=== PATIENT | male | born 1950 | race Caucasian/White ===

== ENCOUNTER → 2016-04-23 | Outpatient (CLI) | payer MEDICARE, OTHER ==
--- NOTE | 2016-04-23 12:16 | KCIC ---
MR LUMBAR SPINE HISTORY:Reason For StudyReason: LOW BACK PAIN LATERALLY / Spl. Instructions: / History: LBP w/sciatica, right. Over 10yrs. Spondylosis. COMPARISON: None Technique: Sagittal T2, sagittal STIR, and sagittal T1-weighted images were obtained. Additional axial T1 and T2 weighted imaging was also performed. FINDINGS: Alignment and curvature are within normal limits. There is no compression fracture. Overall bone marrow signal is within normal limits. The conus terminates normally at the level of T12-L1. Visualized intra-abdominal contents are within normal limits. At L2-L3 there is a broad-based disc bulge. There are also facet joint effusions which are small. There is no significant spinal stenosis. Impression: - Mild degenerative disc disease greatest at L2-L3. There is however, no significant spinal stenosis. Electronically signed by: Musa Tran (Apr 23, 2016 12:15:01)
== END | disposition home or self-care (01) ==
LOC: KCIC MRI 09:53
PROVIDERS: ATTEND Physician Assistant Medical
DX: M51.36 Other intervertebral disc degeneration, lumbar region (principal)
CPT/HCPCS: 72148